=== PATIENT | female | born 1980 | race Caucasian/White ===

== ENCOUNTER 2019-11-30 02:57 | Observation (INO) | payer OTHER ==
[~2019-11-30] VITALS: Ht 162.6 cm; Wt 54.4 kg
[2019-11-30] MEDS: TERBUTALINE SULFATE 1 MG/ML VIAL SUBCUT PRN ×3 (03:14→04:11)
[2019-11-30] MEDS ORDERED: TERBUTALINE SULFATE 1 MG/ML VIAL ONE (03:33)
[2019-11-30] MEDS ORDERED: LR 1,000 ML IV SCH (04:00)
== END 2019-11-30 05:30 | disposition home or self-care (01) ==
LOC: SPU 02:57
PROVIDERS: ADMIT Obstetrics & Gynecology; ATTEND Obstetrics & Gynecology
DX: O60.03 Preterm labor without delivery, third trimester (principal); Z3A.30 30 weeks gestation of pregnancy
CPT/HCPCS: 59025; 81002; 96360; 96361; 96372; G0378; J3105

== ENCOUNTER 2023-05-05 07:45 | Outpatient (CLI) | payer OTHER ==
[2023-05-05] MEDS ORDERED: iohexoL 240 mgI/mL, 50 ML INFUS..BTL IV ONE (08:35)
== END 2023-05-05 20:43 | disposition home or self-care (01) ==
LOC: SRD 07:45
PROVIDERS: ATTEND Specialist
DX: N92.6 Irregular menstruation, unspecified (principal); D25.2 Subserosal leiomyoma of uterus
CPT/HCPCS: 74740; 58340; Q9966